=== PATIENT | male | born 1950 | race Caucasian/White ===

== ENCOUNTER 2022-10-04 22:07 | Observation (INO) ==
--- NOTE | 2022-10-04 22:14 | Emergency Department Note ---
Impression & Plan Syncope, CHI (closed head injury), Cough, Complex laceration of forehead ED Provider Note NAME: LEENA LU AGE: 71 SEX: M : 1950 ARRIVES VIA: Ambulance INFORMANT: Patient, ED PROVIDER(S): Fabrice Sparks MD CHIEF COMPLAINT: Syncope MEDICAL DECISION MAKING: Patient presents due to concern for syncope that occurred [place] [employer]. The patient does have a hematoma to left forehead. Patient denies significant medical comorbidities the exception of gout. No surgical history. Blood work was obtained IV was established, patient was given IV fluids CT of the head and cervical spine were ordered. Patient is unsure as whether or not his tetanus is up-to-date. Patient was ordered this for it to be up-to-date today. Alcohol level also obtained. The patient's blood work shows normal white count H&H and platelet count. Kidney function is unremarkable with mild hyponatremia. TSH is normal. Alcohol 30. COVID-negative. Patient CT head and cervical spine with no acute abnormality. Chest x-ray by my read is unremarkable. I did repair the patient's left forehead laceration. This was slightly complicated by some arterial bleeding but after 4 simple sutures and 1 horizontal mattress suture the bleeding stopped. Given the patient has had 2 episodes of syncope in the last month or so and the patient does not have an echocardiogram or additional work-up I did speak with the on-call hospitalist service for further work-up for syncope. The patient was admitted by Dr. Cárdenas. Prior /Outside records reviewed: None Procedures: Laceration repair performed by Dr. Sparks Location: Left forehead Total length: 3 cm Complexity: Complex Verbal consent was obtained after the risks and benefits were explained, including but not limited to bleeding, scarring, infection, pain, and bone/joint/nerve damage. At this time, the risks of the procedure are less than the risks of NOT performing the procedure. A time out was taken and the correct patient and site identified. The skin was prepped with betadine. Copious irrigation was performed using sterile saline and small mount of Betadine. The skin was re-prepped with betadine and a sterile field set. The wound was explor ed for foreign bodies and none found. Patient did have some associated arterial bleeding when beginning the repair. Debridement was not performed. The wound edges were approximated using 4, 4 -0 simple interrupted Ethilon suture and 1 s horizontal mattress suture which prevented any further bleeding. Hemostasis and excellent approximation was achieved. Antibacterial ointment and a sterile dressing applied. Detailed wound care instructions and signs and symptoms of infection reviewed with the patient. No complications and the patient tolerated the procedure well. Differential diagnosis: Vasovagal event, dehydration, infection, hypoglycemia, electrolyte abnormalities, cardiac sources, intracerebral event, pulmonary embolism, seizure, toxicologic, neurologic, as well as other pathologies. Diagnostics, as interpreted by me: ECG: Sinus tachycardia, rate of 101, intervals normal axis no ST elevations. Cardiac monitoring: An order was placed for continuous cardiac monitoring. The monitor shows a rate of 102 with tachycardic and regular rhythm. Patient was placed on pulse oximetry Medical decision rules: None Imaging studies: See below HPI: Patient presents via EMS due to concern for coughing episode which caused him to syncopized and then suffered a closed head injury. There was some bleeding noted. The patient does admit to taking aspirin. Patient states that this did happen several months ago. The patient does have a history of gout does take allopurinol. Patient denies any chest pain shortness of breath nausea or vomiting. The patient has had nonproductive cough. Patient denies any extremity pain but does complain of some mild frontal headache where the patient did strike his head. Patient denies any nausea or vomiting. The patient has been to drinking this evening. Patient is a former smoker but is not smoked in approximate many years. No drug use. Patient states that he is visiting as he does like due to the [employer] games and admission at the [employer] Thursday and Thursday before going to [facility]. PAST MEDICAL HISTORY: See Below PAST SURGICAL HISTORY: See Below SOCIAL HISTORY: See Below HOME MEDICATIONS: See Below ALLERGIES: See Below VITALS: See Below PHYSICAL EXAMINATION: GENERAL: Nontoxic, head bandaged. EYE EXAM: Normal conjunctiva. PERRL, no anisocoria and EOM's grossly intact w/o pain. Head: 3 x 3 cm hematoma over the left forehead with 3 cm linear laceration with oozing noted. NECK: Supple, no nuchal rigidity, no adenopathy, non-tender. No signs of meningismus. FROM of the neck with good chin to chest and neck extension. No stridor. LUNGS: Clear to auscultation. Normal chest wall mechanics. HEART: NSR, no MRG. ABDOMEN: Abdomen soft, non-tender, normo-active bowel sounds, no masses, no rebound or guarding. BACK: No CVA TTP. SKIN: No rashes, laceration or hematomas noted above UPPER EXTREMITIES: Upper extremities are grossly normal. No TTP or deformity. LOWER EXTREMITIES: Grossly normal, no edema. No TTP or deformity NEURO EXAM: A&O x3, cranial nerves II-XII grossly intact, normal speech, moves all 4 extremities. Past Med/Surg History Medical History Gout Surgical History History of surgical removal of ganglion cyst Family History Other Cancer Hypertension Social History Smoking Status: Former smoker Hx Alcohol Use: Yes Alcohol type: beer Hx Substance Use: No Preferred Language: Dominican Communication Ability: Effective Shoe Treer Required: No Beliefs That Will Affect Care: None Current Living Situation: Spouse Feels Safe at Home: Yes Assistive Devices: None Allergies Allergies Allergy/AdvReac Type Severity Reaction Status Date / Time Penicillins Allergy Unknown Verified 10/05/22 00:52 Home Meds Home Medications Medication Instructions Recorded Confirmed allopurinol 100 mg tablet 100 mg PO DAILY 10/05/22 10/05/22 aspirin 325 mg tablet 325 mg PO DAILY 10/05/22 10/05/22 guaifenesin 600 mg tablet, 0 mg PO DAILY 10/05/22 10/05/22 extended release 12 hr (Mucinex) Results & Data (ED) Vital Signs Vital Signs - 24 hr 10/04/22 22:08 10/04/22 22:08 10/04/22 22:20 Temperature 37.1 C Temperature Source Oral Pulse Rate 106 H 101 H Pulse Rate [Apical] Pulse Rate from SpO2 Sensor Respiratory Rate 19 Respiratory Effort / Characteristics Non-Labored Non-Labored Respiratory Depth Normal Normal Blood Pressure 169/78 H Blood Pressure [Right Arm] Blood Pressure Mean 108 Blood Pressure Mean [Right Arm] Pulse Oximetry 94 Oxygen Delivery Method Room Air Sepsis Recent Fever Within 48 Hours No Sepsis New/Unexplained Change in Mental Status No Sepsis Action Taken by Nursing No Action Required 10/04/22 22:27 10/04/22 22:30 10/04/22 22:30 Temperature Temperature Source Pulse Rate 102 H 99 H Pulse Rate [Apical] Pulse Rate from SpO2 Sensor 98 H 100 H Respiratory Rate 24 25 H Respiratory Effort / Characteristics Respiratory Depth Blood Pressure 150/106 H Blood Pressure [Right Arm] Blood Pressure Mean 120 Blood Pressure Mean [Right Arm] Pulse Oximetry 91 91 Oxygen Delivery Method Sepsis Recent Fever Within 48 Hours Sepsis New/Unexplained Change in Mental Status Sepsis Action Taken by Nursing 10/04/22 22:43 10/04/22 22:43 10/04/22 22:50 Temperature Temperature Source Pulse Rate 97 H 95 H Pulse Rate [Apical] Pulse Rate from SpO2 Sensor 97 H 95 H Respiratory Rate 22 22 Respiratory Effort / Characteristics Respiratory Depth Blood Pressure 177/89 H Blood Pressure [Right Arm] Blood Pressure Mean 118 Blood Pressure Mean [Right Arm] Pulse Oximetry 90 91 Oxygen Delivery Method Sepsis Recent Fever Within 48 Hours Sepsis New/Unexplained Change in Mental Status Sepsis Action Taken by Nursing 10/04/22 23:00 10/04/22 23:00 10/04/22 23:13 Temperature Temperature Source Pulse Rate 94 H Pulse Rate [Apical] Pulse Rate from SpO2 Sensor 94 H 98 H Respiratory Rate 22 Respiratory Effort / Characteristics Respiratory Depth Blood Pressure 184/100 H Blood Pressure [Right Arm] Blood Pressure Mean 128 Blood Pressure Mean [Right Arm] Pulse Oximetry 92 93 Oxygen Delivery Method Sepsis Recent Fever Within 48 Hours Sepsis New/Unexplained Change in Mental Status Sepsis Action Taken by Nursing 10/04/22 23:20 10/04/22 23:30 10/04/22 23:30 Temperature Temperature Source Pulse Rate 92 H Pulse Rate [Apical] Pulse Rate from SpO2 Sensor 92 H 93 H Respiratory Rate Respiratory Effort / Characteristics Respiratory Depth Blood Pressure 155/86 H Blood Pressure [Right Arm] Blood Pressure Mean 109 Blood Pressure Mean [Right Arm] Pulse Oximetry 92 93 Oxygen Delivery Method Sepsis Recent Fever Within 48 Hours Sepsis New/Unexplained Change in Mental Status Sepsis Action Taken by Nursing 10/04/22 23:40 10/05/22 00:05 10/05/22 00:12 Temperature Temperature Source Pulse Rate 96 H 94 H 94 H Pulse Rate [Apical] Pulse Rate from SpO2 Sensor 96 H Respiratory Rate Respiratory Effort / Characteristics Respiratory Depth Blood Pressure Blood Pressure [Right Arm] Blood Pressure Mean Blood Pressure Mean [Right Arm] Pulse Oximetry 94 Oxygen Delivery Method Sepsis Recent Fever Within 48 Hours Sepsis New/Unexplained Change in Mental Status Sepsis Action Taken by Nursing 10/05/22 00:20 10/05/22 00:29 10/05/22 00:30 Temperature Temperature Source Pulse Rate 91 H 90 Pulse Rate [Apical] Pulse Rate from SpO2 Sensor Respiratory Rate Respiratory Effort / Characteristics Respiratory Depth Blood Pressure 150/86 H Blood Pressure [Right Arm] Blood Pressure Mean 107 Blood Pressure Mean [Right Arm] Pulse Oximetry Oxygen Delivery Method Sepsis Recent Fever Within 48 Hours Sepsis New/Unexplained Change in Mental Status Sepsis Action Taken by Nursing 10/05/22 00:31 10/05/22 00:40 10/05/22 00:56 Temperature Temperature Source Pulse Rate 93 H 96 H Pulse Rate [Apical] 90 Pulse Rate from SpO2 Sensor Respiratory Rate 23 Respiratory Effort / Characteristics Respiratory Depth Blood Pressure Blood Pressure [Right Arm] 150/86 H Blood Pressure Mean Blood Pressure Mean [Right Arm] 107 Pulse Oximetry 94 Oxygen Delivery Method Sepsis Recent Fever Within 48 Hours Sepsis New/Unexplained Change in Mental Status Sepsis Action Taken by Nursing 10/05/22 01:00 Temperature Temperature Source Pulse Rate 92 H Pulse Rate [Apical] Pulse Rate from SpO2 Sensor Respiratory Rate 19 Respiratory Effort / Characteristics Respiratory Depth Blood Pressure 150/79 H Blood Pressure [Right Arm] Blood Pressure Mean 102 Blood Pressure Mean [Right Arm] Pulse Oximetry 94 Oxygen Delivery Method Sepsis Recent Fever Within 48 Hours Sepsis New/Unexplained Change in Mental Status Sepsis Action Taken by Jail Medications Current Medication List: was personally reviewed by me Laboratory Data Attestation: I reviewed the patient's lab results. 10/04/22 22:10 10/04/22 22:10 Lab Results 10/04/22 10/04/22 10/04/22 Range/Units 22:10 22:10 22:10 WBC 8.96 (4.8-10.8) K/ul RBC 4.92 (4.70-6.10) M/uL Hgb 16.2 (14.0-18.0) g/dl Hct 45.7 (42.0-52.0) % MCV 92.9 (80.0-100.0) fL MCH 32.9 (25.0-34.0) pg MCHC 35.4 (32.0-36.0) g/dL RDW Std Deviation 51.6 H (36.4-46.3) fL RDW Coeff of Pierre 15.3 H (11.5-14.5) % Plt Count 135 (130-400) K/uL MPV 10.3 (9.4-12.4) fL Immature Gran % (Auto) 1.1 % Neut % (Auto) 53.2 % Lymph % (Auto) 23.7 % Meigs % (Auto) 10.2 % Eos % (Auto) 10.9 % Baso % (Auto) 0.9 % Neut # (Auto) 4.77 (1.40-6.50) K/uL Lymph # (Auto) 2.12 (1.2-3.4) K/uL Meigs # (Auto) 0.91 H (0.11-0.59) K/uL Eos # (Auto) 0.98 H (0-0.50) K/uL Baso # (Auto) 0.08 (0-0.2) K/uL Immature Gran # (Auto) 0.10 (0.01-0.20) K/uL Sodium 132 L (136-145) mmol/L Potassium 4.0 (3.5-5.1) mmol/L Chloride 98 (98-107) mmol/L Carbon Dioxide 25 (21-32) mmol/L Anion Gap 9 (3-11) BUN 12 (6-23) mg/dl Creatinine 0.96 (0.6-1.4) mg/dl Est Cr Clr Drug Dosing 86.0 ml/min Est GFR ( Amer) 91.8 ml/min Est GFR (Non-Af Amer) 79.2 ml/min BUN/Creatinine Ratio 12.5 (10-20) Glucose 117 H (70-99(Fasting)) mg/dl Calcium 8.7 (8.5-10.1) mg/dl Magnesium 1.7 (1.7-2.4) mg/dl Total Bilirubin 0.7 (0.2-1.0) mg/dl AST 30 (13-39) U/L ALT 27 (7-52) U/L Alkaline Phosphatase 83 (34-104) U/L Troponin I High Sens 9.9 (0-20) pg/ml Total Protein 7.3 (6.0-8.3) gm/dl Albumin 4.1 (3.4-5.0) gm/dl Globulin 3.2 (2.5-4.0) gm/dl Albumin/Globulin Ratio 1.3 (0.9-2) TSH 2.748 (0.300-4.500) uIu/ml Ethyl Alcohol mg/dL (<10.0) mg/dl SARS-CoV-2, RNA, NAAT (NEGATIVE) 10/04/22 10/05/22 Range/Units 22:10 00:59 WBC (4.8-10.8) K/ul RBC (4.70-6.10) M/uL Hgb (14.0-18.0) g/dl Hct (42.0-52.0) % MCV (80.0-100.0) fL MCH (25.0-34.0) pg MCHC (32.0-36.0) g/dL RDW Std Deviation (36.4-46.3) fL RDW Coeff of Pierre (11.5-14.5) % Plt Count (130-400) K/uL MPV (9.4-12.4) fL Immature Gran % (Auto) % Neut % (Auto) % Lymph % (Auto) % Meigs % (Auto) % Eos % (Auto) % Baso % (Auto) % Neut # (Auto) (1.40-6.50) K/uL Lymph # (Auto) (1.2-3.4) K/uL Meigs # (Auto) (0.11-0.59) K/uL Eos # (Auto) (0-0.50) K/uL Baso # (Auto) (0-0.2) K/uL Immature Gran # (Auto) (0.01-0.20) K/uL Sodium (136-145) mmol/L Potassium (3.5-5.1) mmol/L Chloride (98-107) mmol/L Carbon Dioxide (21-32) mmol/L Anion Gap (3-11) BUN (6-23) mg/dl Creatinine (0.6-1.4) mg/dl Est Cr Clr Drug Dosing ml/min Est GFR ( Amer) ml/min Est GFR (Non-Af Amer) ml/min BUN/Creatinine Ratio (10-20) Glucose (70-99(Fasting)) mg/dl Calcium (8.5-10.1) mg/dl Magnesium (1.7-2.4) mg/dl Total Bilirubin (0.2-1.0) mg/dl AST (13-39) U/L ALT (7-52) U/L Alkaline Phosphatase (34-104) U/L Troponin I High Sens (0-20) pg/ml Total Protein (6.0-8.3) gm/dl Albumin (3.4-5.0) gm/dl Globulin (2.5-4.0) gm/dl Albumin/Globulin Ratio (0.9-2) TSH (0.300-4.500) uIu/ml Ethyl Alcohol mg/dL 130.6 H (<10.0) mg/dl SARS-CoV-2, RNA, NAAT NEGATIVE (NEGATIVE) Administered Medications Discontinued Medications Acetaminophen (Acetaminophen 325 Mg Tab) 650 mg PO Q4H PRN PRN Reason: pain/fever Stop: 11/04/22 02:26 Last Admin: 10/05/22 03:39 Dose: 650 mg Documented By: CELESTE Allopurinol (Allopurinol 100 Mg Tab) 100 mg PO DAILY [facility] Stop: 11/04/22 08:59 Last Admin: 10/05/22 07:39 Dose: 100 mg Documented By: FELECIA Diphtheria/Pertussis/Tetanus Vacc (Diphtheria/Tetanus/Pertussis 0.5ml Syr/Vial (Age 7+Yrs)) 0.5 ml IM .ONCE ONE Stop: 10/05/22 00:00 Last Admin: 10/05/22 00:08 Dose: 0.5 ml Documented By: LIBAN Sodium Chloride (Nss) 500 mls @ 999 mls/hr IV .Q31M [facility] Stop: 10/04/22 23:00 Last Infusion: 10/05/22 00:09 Dose: 0 mls/hr Documented By: Admin: 10/04/22 23:14 Dose: 999 mls/hr Documented By: LIBAN Imaging Data Radiologist's Impression: Cervical Spine CT 10/04/22 22:20 CT OF THE CERVICAL SPINE WITHOUT CONTRAST CLINICAL HISTORY: fall, etoh COMPARISON STUDY: No previous studies for comparison. TECHNIQUE: Helical axial images of the cervical spine were obtained without IV contrast. Sagittal and coronal reconstructions were viewed. Automated exposure control was utilized for the study. A dose lowering technique was utilized adhering to the principles of ALARA. FINDINGS: There is straightening of the cervical lordosis. Vertebral body heights are maintained. No acute cervical spine fracture or subluxation is present. There is no prevertebral edema. Facet joints are intact. Moderate mul tilevel degenerative changes within the cervical spine are present. IMPRESSION: No acute cervical spine fracture or subluxation. ACT 112: Negative or not required by law. Electronically signed by: Ralph Ricketts M.D. 10/05/2022 9:[address] 10/04/22 22:[address] DOSE: 1445.62 mGy.cm HISTORY: fall, closed head injury, lac, forehead hematoma TECHNIQUE: Multiaxial CT images of the head were performed without the use of intravenous contrast. Automated exposure control was utilized for this study. A dose lowering technique was utilized adhering to the principles of ALARA. Comparison: None. Findings: Mild mucosal thickening within the ethmoid air cells and right maxillary sinus. The mastoid air cells are clear. Focal left frontal scalp soft tissue swelling/hematoma with associated laceration. The calvarium and skull base are intact. The ventricles and sulci are within normal limits. There is no mass, hematoma, midline shift, or acute infarct. Impression: No acute intracranial abnormality. Left frontal scalp injury. ACT 112: Negative or not required by law. Electronically signed by: Hugo Steen M.D. 10/05/2022 7:43 AM Chest X-Ray 10/04/22 22:22 XR chest 1V portable HISTORY: cough COMPARISON: None. FINDINGS: Mild interstitial thickening the lung bases may be due to vascular crowding from the low lung volumes. Otherwise, no focal lung consolidations to s uggest a pneumonia. No evidence for pulmonary edema. The heart is top normal in size. No pleural effusions. No pneumothorax. IMPRESSION: No acute process. ACT 112: Negative or not required by law. Electronically signed by: Hugo Steen M.D. 10/05/2022 9:00 AM Discharge Plan Visit Data Chief Complaint: Syncope Stated Complaint: SYNCOPAL EPISODE/LAC TO HEAD ED Provider: Fabrice Sparks Discharge Problem: Syncope, CHI (closed head injury), Cough, Complex laceration of forehead Patient Disposition: Admitted As Inpatient Discharge Instructions Interventions: ED Discharge Assessment Last Done: 10/05/22 02:24
[2022-10-04] MEDS ORDERED: SODIUM CHLORIDE 0.9% 500 ML IV SCH (22:30)
[2022-10-04 22:46] LABS: Basophils # (auto) 0.08 K/uL (0-0.2); Basophils % (auto) 0.9 %; Eosinophils # (auto) 0.98 K/uL (0-0.50); Eosinophils % (auto) 10.9 %; Hematocrit (blood only) 45.7 % (42.0-52.0); Hemoglobin 16.2 g/dl (14.0-18.0); Immature Granulocytes % (auto) 1.1 %; Lymphocytes # (auto) 2.12 K/uL (1.2-3.4); Lymphocytes % (auto) 23.7 %; Mean Corpuscular Hemoglobin 32.9 pg (25.0-34.0); Mean Corpuscular Hgb Conc 35.4 g/dL (32.0-36.0); Mean Corpuscular Volume 92.9 fL (80.0-100.0); Mean Platelet Volume 10.3 fL (9.4-12.4); Monocytes # (auto) 0.91 K/uL (0.11-0.59); Monocytes % (auto) 10.2 %; Neutrophils # (auto) 4.77 K/uL (1.40-6.50); Neutrophils % (auto) 53.2 %; Platelet Count 135 K/uL (130-400); RDW Coefficient of Variation 15.3 % (11.5-14.5); RDW Standard Deviation 51.6 fL (36.4-46.3); Red Blood Count 4.92 M/uL (4.70-6.10); White Blood Count 8.96 K/ul (4.8-10.8)
[2022-10-04 23:19] LABS: Albumin Globulin Ratio 1.3 (0.9-2); Albumin Level 4.1 gm/dl (3.4-5.0); BUN Creatinine Ratio 12.5 (10-20); Bilirubin,Total 0.7 mg/dl (0.2-1.0); Calcium 8.7 mg/dl (8.5-10.1); Est GFR (African American) 91.8 ml/min; Est GFR (Non-African American) 79.2 ml/min; Globulin 3.2 gm/dl (2.5-4.0); Magnesium 1.7 mg/dl (1.7-2.4); Total Protein 7.3 gm/dl (6.0-8.3)
[2022-10-04 23:26] LABS: Troponin I High Sensitivity 9.9 pg/ml (0-20)
[2022-10-04] MEDS ORDERED: DIPHTHERIA/TETANUS/PERTUSSIS 0.5mL SYR/VIAL (Age 7+yrs) IM ONE (23:59)
--- NOTE | 2022-10-05 01:30 | History & Physical Report ---
Date of Service October 05, 2022 Assessment & Plan (1) Syncope: Plan: 71-year-old male presenting after syncopal event following a coughing fit. Patient with normal EKG. No known heart disease. Observation to medical telemetry Check carotid Dopplers Check 2D echo (2) Head trauma: Plan: Status post mild head trauma. Laceration repaired in the ER. Neurologically intact with no focal deficits. CT of the head with superficial hematoma. Neurochecks Wound care Tylenol as needed for pain (3) Gout: Plan: Chronic. Stable. Continue allopurinol 100 mg p.o. daily F/E/NHep-Lock, mild hyponatremia with sodium = 132, will monitor. Regular diet as tolerated Prophylaxislow risk for DVT Codefull Dispositionobservation to medical with telemetry History of Present Illness Chief Complaint: Syncope, head trauma Primary Care Provider: ANDREW DANG Otilio López is a pleasant 71-year-old male with history of gout presenting with syncope and head trauma. Patient was out with friends this evening for drinks. He had a coughing fit followed by a syncopal event. Patient fell to the ground and hit the left side of his forehead against the floor. He denies chest pain, palpitations, dizziness, fever, chills, shortness of breath, abdominal pain, nausea, vomiting, diarrhea, constipation. Patient reports that he gets these coughing spells on occasion, more frequently in the winter. His cough is productive for sputumgreen mucus in the mornings at times. He did have 1 additional episode of syncope following a coughing episode that occurred several months ago. Patient is scheduled to see pulmonary for additional work-up of his cough and mucus. In the ER he is afebrile, hypertensive otherwise hemodynamically stable. No respiratory distress. Adequate oxygenation on room air. Left forehead laceration was repaired by the ER physician. ER course: Diphtheria/pertussis/tetanus vaccine administered Normal saline x500 mL Allergies Allergy/AdvReac Type Severity Reaction Status Date / Time Penicillins Allergy Unknown Verified 10/05/22 00:52 Home Medications Medication Instructions Recorded Confirmed Type allopurinol 100 mg tablet 100 mg PO DAILY 10/05/22 10/05/22 History aspirin 325 mg tablet 325 mg PO DAILY 10/05/22 10/05/22 History guaifenesin 600 mg tablet, 0 mg PO DAILY 10/05/22 10/05/22 History extended release 12 hr (Mucinex) Past Med/Surg History Medical History (Updated 10/05/22 @ 03:32 by Marialuisa Cárdenas DO) Gout Surgical History (Updated 10/05/22 @ 03:28 by Marialuisa Cárdenas DO) History of surgical removal of ganglion cyst Family History (Updated 10/05/22 @ 03:28 by Marialuisa Cárdenas DO) Other Cancer Hypertension Social History (Updated 10/04/22 @ 22:30 by Fabrice Sparks MD) Smoking Status: Former smoker Hx Alcohol Use: Yes Alcohol type: beer Hx Substance Use: No Preferred Language: Yi Communication Ability: Effective Security Manager Required: No Beliefs That Will Affect Care: None Current Living Situation: Spouse Feels Safe at Home: Yes Assistive Devices: None Review of Systems Review of Systems: All systems reviewed & are unremarkable except as noted in HPI & below Physical Exam Physical Exam: General: patient resting comfortably, NAD, non-toxic in appearance, AA&O x 4 Skin: warm, dry, no rashes or lesions HEENT: Patient status post fall with head trauma, laceration to left frontal bone status post suture placement in the ER, PERRL, EOMI, anicteric sclera, conjunctiva without injection, external ear normal to inspection and nontender, nares patent, moist mucus membranes, dentition intact, no oropharyngeal lesions, neck supple, trachea midline, no LAD, no thyromegaly, no JVD, no carotid bruit Heart: +S1/S2, regular, no m/r/g Lungs: equal air entry bilaterally, no rales/rhonchi/wheezes Abd: +BS, soft, NT/ND, no masses/organomegaly/ascites Ext: warm, 2+ pulses in UE/LE bilaterally, no clubbing/cyanosis or edema Neuro: nonfocal, patient AA&O x 4, speech intact, no facial droop, moving all extremities on command with equal strength 5/5 Results & Data Results & Data ([facility]) Vital Signs (Past 12 Hours) Vital Signs Temp Pulse Pulse Resp BP BP Pulse Ox 10/05/22 00:56 90 23 150/86 H 94 10/05/22 00:40 96 H 10/05/22 00:31 93 H 02/26/23 00:30 150/86 H 10/05/22 00:29 90 10/05/22 00:20 91 H 10/05/22 00:12 94 H 10/05/22 00:05 94 H 10/04/22 23:40 96 H 94 10/04/22 23:30 92 H 93 10/04/22 23:30 155/86 H 10/04/22 23:20 92 10/04/22 23:13 93 10/04/22 23:00 94 H 22 92 10/04/22 23:00 184/100 H 10/04/22 22:50 95 H 22 91 10/04/22 22:43 97 H 22 90 10/04/22 22:43 177/89 H 10/04/22 22:30 99 H 25 H 91 10/04/22 22:30 150/106 H 10/04/22 22:27 102 H 24 91 10/04/22 22:20 101 H 10/04/22 22:08 37.1 C 106 H 19 169/78 H 94 O2 Del Method 10/05/22 00:56 10/05/22 00:40 10/05/22 00:31 10/05/22 00:30 10/05/22 00:29 10/05/22 00:20 10/05/22 00:12 10/05/22 00:05 10/04/22 23:40 10/04/22 23:30 10/04/22 23:30 10/04/22 23:20 10/04/22 23:13 10/04/22 23:00 10/04/22 23:00 10/04/22 22:50 10/04/22 22:43 10/04/22 22:43 10/04/22 22:30 10/04/22 22:30 10/04/22 22:27 10/04/22 22:20 10/04/22 22:08 Room Air Laboratory Results Laboratory Results WBC 8.96 K/ul (4.8-10.8) 10/04/22 22:10 RBC 4.92 M/uL (4.70-6.10) 10/04/22 22:10 Hgb 16.2 g/dl (14.0-18.0) 10/04/22 22:10 Hct 45.7 % (42.0-52.0) 10/04/22 22:10 MCV 92.9 fL (80.0-100.0) 10/04/22 22:10 MCH 32.9 pg (25.0-34.0) 10/04/22 22:10 MCHC 35.4 g/dL (32.0-36.0) 10/04/22 22:10 RDW Std Deviation 51.6 fL (36.4-46.3) H 10/04/22 22:10 RDW Coeff of Pierre 15.3 % (11.5-14.5) H 10/04/22 22:10 Plt Count 135 K/uL (130-400) 10/04/22 22:10 MPV 10.3 fL (9.4-12.4) 10/04/22 22:10 Immature Gran % (Auto) 1.1 % 10/04/22 22:10 Neut % (Auto) 53.2 % 10/04/22 22:10 Lymph % (Auto) 23.7 % 10/04/22 22:10 Rich % (Auto) 10.2 % 10/04/22 22:10 Eos % (Auto) 10.9 % 10/04/22 22:10 Baso % (Auto) 0.9 % 10/04/22 22:10 Neut # (Auto) 4.77 K/uL (1.40-6.50) 10/04/22 22:10 Lymph # (Auto) 2.12 K/uL (1.2-3.4) 10/04/22 22:10 Rich # (Auto) 0.91 K/uL (0.11-0.59) H 10/04/22 22:10 Eos # (Auto) 0.98 K/uL (0-0.50) H 10/04/22 22:10 Baso # (Auto) 0.08 K/uL (0-0.2) 10/04/22 22:10 Immature Gran # (Auto) 0.10 K/uL (0.01-0.20) 10/04/22 22:10 Sodium 132 mmol/L (136-145) L 10/04/22 22:10 Potassium 4.0 mmol/L (3.5-5.1) 10/04/22 22:10 Chloride 98 mmol/L (98-107) 02/25/23 22:10 Carbon Dioxide 25 mmol/L (21-32) 10/04/22 22:10 Anion Gap 9 (3-11) 10/04/22 22:10 BUN 12 mg/dl (6-23) 10/04/22 22:10 Creatinine 0.96 mg/dl (0.6-1.4) 10/04/22 22:10 Est Cr Clr Drug Dosing 86.0 ml/min 10/04/22 22:10 Est GFR ( Amer) 91.8 ml/min 10/04/22 22:10 Est GFR (Non-Af Amer) 79.2 ml/min 10/04/22 22:10 BUN/Creatinine Ratio 12.5 (10-20) 10/04/22 22:10 Glucose 117 mg/dl (70-99(Fasting)) H 10/04/22 22:10 Calcium 8.7 mg/dl (8.5-10.1) 10/04/22 22:10 Magnesium 1.7 mg/dl (1.7-2.4) 10/04/22 22:10 Total Bilirubin 0.7 mg/dl (0.2-1.0) 10/04/22 22:10 AST 30 U/L (13-39) 10/04/22 22:10 ALT 27 U/L (7-52) 10/04/22 22:10 Alkaline Phosphatase 83 U/L (34-104) 10/04/22 22:10 Troponin I High Sens 9.9 pg/ml (0-20) 10/04/22 22:10 Total Protein 7.3 gm/dl (6.0-8.3) 10/04/22 22:10 Albumin 4.1 gm/dl (3.4-5.0) 10/04/22 22:10 Globulin 3.2 gm/dl (2.5-4.0) 10/04/22 22:10 Albumin/Globulin Ratio 1.3 (0.9-2) 10/04/22 22:10 TSH 2.748 uIu/ml (0.300-4.500) 10/04/22 22:10 Ethyl Alcohol mg/dL 130.6 mg/dl (<10.0) H 10/04/22 22:10 SARS-CoV-2, RNA, NAAT NEGATIVE (NEGATIVE) 10/05/22 00:[address] head with scalp hematoma otherwise no acute abnormality CT cervical spine with no cervical spine fracture PG Care Time/CCT Total # of Minutes Spent Total Time Spent with Patient: Total time spent is greater than 50% in coordination of care (as documented) at patient's floor/unit and/or counseling patient: Coding Level of Care Code 20342 INT INP/OBS CARE 2/55MIN Diagnoses Syncope R55 Head trauma S09.90XA Gout M10.9
[2022-10-05] MEDS ORDERED: ACETAMINOPHEN 325 MG TAB PO PRN (02:27)
--- NOTE | 2022-10-05 07:19 | Hospitalist Progress Note ---
Date of Service October 05, 2022 Assessment & Plan Admission and Anticipated Discharge Date Admission Date: October 05, 2022 Results & Data Results & Data ([facility]) Vital Signs (Past 12 Hours) Vital Signs Temp Pulse Pulse Resp BP BP Pulse Ox 10/05/22 05:33 100 H 10/05/22 02:57 37.1 C 87 17 156/88 H 92 10/05/22 02:00 84 23 149/80 H 93 10/05/22 01:30 85 24 166/80 H 92 10/05/22 01:00 92 H 19 150/79 H 94 10/05/22 00:56 90 23 150/86 H 94 10/05/22 00:40 96 H 10/05/22 00:31 93 H 10/05/22 00:30 150/86 H 10/05/22 00:29 90 10/05/22 00:20 91 H 10/05/22 00:12 94 H 10/05/22 00:05 94 H 10/04/22 23:40 96 H 94 10/04/22 23:30 92 H 93 10/04/22 23:30 155/86 H 10/04/22 23:20 92 10/04/22 23:13 93 10/04/22 23:00 94 H 22 92 10/04/22 23:00 184/100 H 10/04/22 22:50 95 H 22 91 10/04/22 22:43 97 H 22 90 10/04/22 22:43 177/89 H 10/04/22 22:30 99 H 25 H 91 10/04/22 22:30 150/106 H 10/04/22 22:27 102 H 24 91 10/04/22 22:20 101 H 10/04/22 22:08 37.1 C 106 H 19 169/78 H 94 O2 Del Method 10/05/22 05:33 10/05/22 02:57 Room Air 10/05/22 02:00 10/05/22 01:30 10/05/22 01:00 10/05/22 00:56 10/05/22 00:40 10/05/22 00:31 10/05/22 00:30 10/05/22 00:29 10/05/22 00:20 10/05/22 00:12 10/05/22 00:05 10/04/22 23:40 02/25/23 23:30 10/04/22 23:30 10/04/22 23:20 10/04/22 23:13 10/04/22 23:00 10/04/22 23:00 10/04/22 22:50 10/04/22 22:43 10/04/22 22:43 10/04/22 22:30 10/04/22 22:30 10/04/22 22:27 10/04/22 22:20 10/04/22 22:08 Room Air
--- NOTE | 2022-10-05 07:44 | CT Scan Report ---
HEAD CT NONCONTRAST CT DOSE: 1445.62 mGy.cm HISTORY: fall, closed head injury, lac, forehead hematoma TECHNIQUE: Multiaxial CT images of the head were performed without the use of intravenous contrast. A utomated exposure control was utilized for this study. A dose lowering technique was utilized adheri ng to the principles of ALARA. Comparison: None. Findings: Mild mucosal thickening within the ethmoid air cells and right maxillary sinus. The mastoid air cells are clear. Focal left frontal scalp soft tissue swelling/hematoma with associated lacerati on. The calvarium and skull base are intact. The ventricles and sulci are within normal limits. There is no mass, hematoma, midline shift, or acute infarct. Impression: No acute intracranial abnormality. Left frontal scalp injury. ACT 112: Negative or not required by law. Electronically signed by: Hugo Steen M.D. 10/05/2022 7:43 AM
[2022-10-05] MEDS ORDERED: allopurinoL 100 MG TAB PO SCH (09:00)
--- NOTE | 2022-10-05 09:01 | XRay Report ---
XR chest 1V portable HISTORY: cough COMPARISON: None. FINDINGS: Mild interstitial thickening the lung bases may be due to vascular crowding from the low tommy ng volumes. Otherwise, no focal lung consolidations to suggest a pneumonia. No evidence for pulmonary edema. The heart is top normal in size. No pleural effusions. No pneumothorax. IMPRESSION: No acute process. ACT 112: Negative or not required by law. Electronically signed by: Hugo Steen M.D. 10/05/2022 9:00 AM
--- NOTE | 2022-10-05 09:18 | CT Scan Report ---
CT OF THE CERVICAL SPINE WITHOUT CONTRAST CLINICAL HISTORY: fall, etoh COMPARISON STUDY: No previous studies for comparison. TECHNIQUE: Helical axial images of the cervical spine were obtained without IV contrast. Sagittal a nd coronal reconstructions were viewed. Automated exposure control was utilized for the study. A do se lowering technique was utilized adhering to the principles of ALARA. FINDINGS: There is straightening of the cervical lordosis. Vertebral body heights are maintained. No acute cervical spine fracture or subluxation is present. There is no prevertebral edema. Facet joints are intact. Moderate multilevel degenerative changes within the cervical spine are present. IMPRESSION: No acute cervical spine fracture or subluxation. ACT 112: Negative or not required by law. Electronically signed by: Ralph Ricketts M.D. 10/05/2022 9:16 AM
--- NOTE | 2022-10-05 09:36 | Ultrasound Report ---
BILATERAL CAROTID DOPPLER STUDY HISTORY: syncope COMPARISON: None. TECHNIQUE: Real-time, grayscale, and color Doppler sonography of the carotid arteries was performed. Imaging reviewed in the transverse and longitudinal planes. All measurements were calculated based on NASCET criteria. FINDINGS: Antegrade flow is seen in the bilateral vertebral arteries. Moderate right and mild left atherosclerotic plaque within the carotid bifurcations. The peak systolic velocity within the right ICA is 221 cm/s, proximally. The right systolic ratio is 2. The peak systolic velocity within the left ICA is 85 cm/s. The left systolic ratio is 0.8. Mild stenosis within the bilateral external carotid arteries. IMPRESSION: 1. Approximately 60-69% stenosis within the proximal right internal carotid artery. 2. No significant stenosis within the left common or internal carotid arteries. ACT 112: Negative or not required by law. Electronically signed by: Hugo Steen M.D. 10/05/2022 9:35 AM
--- NOTE | 2022-10-05 10:50 | Electrocardiogram Report ---
Test Reason : Blood Pressure : / mmHG Vent. Rate : 101 BPM Atrial Rate : 101 BPM P-R Int : 206 ms QRS Dur : 090 ms QT Int : 352 ms P-R-T Axes : 047 018 039 degrees QTc Int : 456 ms Poor data quality, interpretation may be adversely affected Sinus tachycardia Possible Inferior infarct , age undetermined Cannot rule out Anterior infarct , age undetermined Abnormal ECG No previous ECGs available Confirmed by Orlin Tom ([id number]) on 10/05/2022 10:49:47 AM Referred By: REFERRED SELF Confirmed By:Orlin Tom
--- NOTE | 2022-10-05 12:06 | XCELERA ---
[id number]
--- NOTE | 2022-10-05 13:35 | Discharge Summary ---
Date of Service October 05, 2022 Admission HPI Per Admitting Provider Otilio López is a pleasant 71-year-old male with history of gout presenting with syncope and head trauma. Patient was out with friends this evening for drinks. He had a coughing fit followed by a syncopal event. Patient fell to the ground and hit the left side of his forehead against the floor. He denies chest pain, palpitations, dizziness, fever, chills, shortness of breath, abdominal pain, nausea, vomiting, diarrhea, constipation. Patient reports that he gets these coughing spells on occasion, more frequently in the winter. His cough is productive for sputumgreen mucus in the mornings at times. He did have 1 additional episode of syncope following a coughing episode that occurred several months ago. Patient is scheduled to see pulmonary for additional work-up of his cough and mucus. In the ER he is afebrile, hypertensive otherwise hemodynamically stable. No respiratory distress. Adequate oxygenation on room air. Left forehead laceration was repaired by the ER physician. ER course: Diphtheria/pertussis/tetanus vaccine administered Normal saline x500 mL Admission Exam Per Admitting Provider General: patient resting comfortably, NAD, non-toxic in appearance, AA&O x 4 Skin: warm, dry, no rashes or lesions HEENT: Patient status post fall with head trauma, laceration to left frontal bone status post suture placement in the ER, PERRL, EOMI, anicteric sclera, conjunctiva without injection, external ear normal to inspection and nontender, nares patent, moist mucus membranes, dentition intact, no oropharyngeal lesions, neck supple, trachea midline, no LAD, no thyromegaly, no JVD, no carotid bruit Heart: +S1/S2, regular, no m/r/g Lungs: equal air entry bilaterally, no rales/rhonchi/wheezes Abd: +BS, soft, NT/ND, no masses/organomegaly/ascites Ext: warm, 2+ pulses in UE/LE bilaterally, no clubbing/cyanosis or edema Neuro: nonfocal, patient AA&O x 4, speech intact, no facial droop Principal Diagnosis Cough syncope Discharge Exam Constitutional: well-appearing, no acute distress HEENT: left forehead laceration with sutures in place, no active bleeding CV: regular rhythm, no murmur appreciated, extremities well-perfused, no LE e abi Resp: CTABL, no wheezes/rales/rhonchi appreciated, no increased work of breathing Neuro: alert, oriented, no focal neurologic deficit appreciated, CN2-12 grossly intact Discharge Data Allergies Allergy/AdvReac Type Severity Reaction Status Date / Time Penicillins Allergy Unknown Verified 10/05/22 00:52 Consultations 10/04/22 23:59 ED Decision to Admit Stat Ordered Studies 10/04/22 22:20 CT cervical spine wo con Urgent CT head/brain wo con Urgent 10/05/22 02:27 Carotid duplex [US carotid doppler BI] Urgent Hospital Course (1) Syncope: Cough syncope Upon admission, patient was alert and oriented, and a neurologic exam was unremarkable/nonfocal. Continuous cardiac monitoring showed no arrhythmia or pauses during this hospitalization. A carotid doppler was performed and noted a 60-69% stenosis of the proximal right internal carotid artery, and no significant stenosis of the left common or internal carotid arteries. An echocardiogram was performed; findings are noted below. The right carotid stenosis and severe concentric LVH were felt to be incidental findings and noncontributory to patient's presenting symptoms. Overall, cough syncope was felt to be the cause of patient's symptoms, and patient was discharged in stable condition on hospital day one. Patient noted an upcoming pulmonology appointment (10/23/22) for further evaluation of patient's chronic cough and coughing fits. PCP follow-up is also recommended. Prior to discharge, concerns regarding driving safety were discussed with patient, given that this was patient's second episode of sudden loss of consciousness following a coughing fit, and because the etiology of patient's cough is still unclear. Patient was appropriately concerned about his driving safety as well, and noted he will avoid driving at least until PCP follow-up. A [employer] initial reporting form was completed on the day of discharge. Head trauma Patient's left forehead laceration was repaired in the ED with sutures prior to being admitted; there were no further episodes of bleeding afterward. CT head and CT c-spine were without acute findings. Routine wound care was reviewed with patient. PCP follow-up is recommended. Left ventricular hypertrophy An echocardiogram was performed on admission, which noted: Normal LV size with hyperdynamic systolic function; EF > 70% Severe concentric LVH No regional wall motion abnormalities, no significant valvular abnormalities These findings were felt to be noncontributory to patient's presenting symptoms; however, further workup is strongly recommended to evaluate for causes e.g. untr eated hypertension, as well as to assess whether patient should be on an PANKAJ inhibitor to prevent further cardiac remodeling. PCP follow-up is recommended. (2) Head trauma: Total Time Total Time Spent Total Time Spent (In Minutes): see attending documentation Discharge Plan Discharge Items Patient Disposition: Home - Self-Care Reason For Visit: SYNCOPE Discharge Diagnosis: Cough syncope Activity: Resume your previous activity Non-emergency contact: Primary Care Provider Call non-emergency contact if: your symptoms worsen Follow-up/Referrals: ZENA VEGA [Other] Diet: Regular Addtl Attending Provider Instructions: You were admitted to the hospital for syncope (fainting) due to coughing. We repaired the laceration on your forehead, and we performed various tests and imaging scans to rule out more concerning causes of fainting. The test results were reassuring, and so we feel it is safe for you to return home. A discharge summary will be sent to your primary care physician to ensure continuity of care. Please bring this discharge summary with you to your next office appointment so that your provider can review it at that time. Follow-up appointments: Make a follow-up appointment with your Zena Vega at [facility] within the next week. It is very important that you follow up with them shortly after discharge from the hospital. There are a number of minor findings that we feel will be important to discuss with your PCP, and so we will be sending them a summary of this hospital visit. Keep all your follow-up appointments as already scheduled. If you cannot make an appointment, notify your provider. Medications: Your medication list has been reviewed and reconciled upon discharge to ensure accuracy and continuity of care. An updated list of all your medications is included with your hospital discharge paperwork. We did not make any changes to your medication regimen during this hospitalization. CONTACT YOUR PRIMARY CARE PROVIDER if you experience any of the following: Lightheadedness, dizziness, weakness, changes in vision Further episodes of fainting, whether related to coughing or not Difficulty following your treatment plan, or difficulty taking medications CALL 911 OR GO TO THE EMERGENCY DEPARTMENT if you experience any of the following: Sudden, severe abdominal pain or nausea/vomiting Severe chest pain, or chest pain that radiates (moves) to your jaw or arm Sudden, severe shortness of breath or difficulty breathing Thank you for allowing us to participate in your care. Pending Studies at Discharge: No Stand-Alone Forms: [facility] Medications and DC Order Prescriptions: Continued aspirin 325 mg Tablet 325 mg PO DAILY allopurinol 100 mg tablet 100 mg PO DAILY guaifenesin [Mucinex] 600 mg Tablet Extended Release 12hr 0 mg PO DAILY Discharge Orders: Discharge Order (Routine); Ordered 10/05/22 Ordered By: Fabrice Campos Admission Data Admit Date/Time: 10/05/22 01:29 Attending Provider: Miguel Ángel Washington Admit Provider: Marialuisa Cárdenas Primary Care Provider: ZENA VEGA Other Providers: Marialuisa Cárdenas Other Interventions: Discharge Summary Assessment (RN) Last Done: 10/05/22 12:57 Supervising Physician Co-Signing Physician Notes I also saw the patient with the resident physician and confirmed davis portions of the history and physical examination. I agree with the impression plan as noted in the resident documentation, and as indicated below. Patient is a 71-year-old male who is visiting from out of town. Prior to coming to [place], he has been seeing his primary care physician for a new cough. He actually has been referred to pulmonary medicine and has an appointment in mid October. He explains that he was treated with 2 courses of antibiotics at the onset of cough, but neither helped. He actually had one previous post tussive syncope prior to his event last evening. Last evening he was at a local brewery with friends; he started to cough (a coughing fit), turned to stand up and leave the table and apparently had a syncopal episode. He struck his forehead on the ground. He was only out for a very brief period of time. EMS was called and the patient was brought to the emergency department. Exam 148/87, 76, 18, 36.8, 97% on room air He has abrasion and ecchymosis forehead, just left of center Pupils equal round reactive light. Extraocular muscles noted to be intact. He is alert and oriented. Has no complaints at present Heart regular rate and rhythm. Lungs clear throughout. Nonlabored respirations Data CBC unremarkable Sodium 132, remainder of electrolytes unremarkable Random glucose 117 Ethyl alcohol 130.6 COVID screen negative Transthoracic echocardiogram completed today shows normal left ventricular size with hyperdynamic systolic function, ejection fraction greater than 70%. No regional wall motion abnormalities are appreciated. CT head was negative No significant valvular abnormalities. Does note severe concentric left ventricular hypertrophy Chronic Doppler noted 60-60% stenosis in the right proximal internal carotid artery. No significant stenosis of the left common or internal carotid arteries. Impression and plan Tussive syncope This is actually patient's second test of syncope. He has been previously referred to pulmonology by his PCP. This is arranged for mid October. Carotid artery stenosis Recommend low-dose aspirin Likely needs a statin, although will defer to PCP (no lipid profile drawn this morning, and patient has already eaten) Discussed with patient the need for likely repeat carotid ultrasound, 6-12 months; he will discuss with PCP Additional per resident documentation Resident Activity Tracking Resident Involvement: Resident Care Provided Care Provided: [facility]
== END 2022-10-05 13:18 | disposition home or self-care (01) ==
LOC: ED 22:07 → EDINP 22:07 → SUATTDRO 10-05 01:29 → 2E 10-05 02:24